=== PATIENT | female | born 1985 | race Caucasian/White ===

== ENCOUNTER 2024-03-19 11:57 | Outpatient (REF) | payer BC, SELFPAY ==
[2024-03-19 14:55] LABS: Absolute Basophil Count 0.05 10^3/uL (0.0-0.2); Absolute Eosinophil Count 0.09 10^3/uL (0.0-0.7); Absolute Lymphocyte Count 2.28 10^3/uL (1.2-3.4); Absolute Monocyte Count 0.72 10^3/uL (0.1-0.8); Absolute Neutrophil Count 6.69 10^3/uL (1.2-6.7); Basophils % 0.5 %; Eosinophils % 0.9 %; HCT 36.5 % (36.0-46.0); HGB 12.1 g/dL (11.2-15.7); MCH 29.9 pg (27.0-33.0); MCHC 33.2 % (32.0-36.0); MCV 90 fL (80-95); MPV 9.6 fL (8.0-11.0); Monocytes % 7.3 %; Neutrophils % 67.3 %; Platelet Count 372 10^3/uL (130-400); RBC 4.05 10^6/uL (3.93-5.22); RDW 11.9 % (11.7-14.6); RDW-SD 39.2 fL; WBC 9.93 10^3/uL (4.4-10.8)
[2024-03-19 15:03] LABS: ESR 52 mm/hr (0-20)
[2024-03-19 15:11] LABS: ALT 55 U/L (14-59); AST 21 U/L (15-37); Albumin 3.2 g/dL (3.4-5.0); Alkaline Phosphatase 86 U/L (46-116); Anion Gap 8.6 mmol/L (3-11); BUN 11 mg/dL (7-18); Bilirubin, Total 0.34 mg/dL (0.2-1.0); CO2 27.4 mmol/L (21.0-32.0); CREATININE 0.7 mg/dL (0.55-1.02); Chloride 104 mmol/L (98-107); Estimated GFR 114.88 (mL/min/1.73m2); Glucose 91 mg/dL (74-106); Potassium 4.4 mmol/L (3.5-5.1); Sodium 140 mmol/L (136-145); Total Protein 7.8 g/dL (6.4-8.2)
[2024-03-19 15:17] LABS: Hemoglobin A1C 5.4 % (<5.7)
[2024-03-19 15:20] LABS: C-Reactive Protein 1.55 mg/dL (<or=0.5)
[2024-03-19 22:17] LABS: Rheumatoid Factor <8.6 IU/mL (<12.0)
[2024-03-20 11:00] LABS: Lyme Ab w Rflx to Lyme Confirm Negative (Negative)
[2024-03-20 14:22] LABS: ANA Interpretation Negative (Negative)
[2024-03-22 18:35] LABS: Anaplasma phagocytophilum Negative (Negative); B. miyamotoi PCR Negative (Negative); Babesia divergens/MO-1 Negative (Negative); Babesia duncani Negative (Negative); Babesia microti Negative (Negative); Ehrlichia chaffeensis Negative (Negative); Ehrlichia ewingii/canis Negative (Negative); Ehrlichia muris eauclairensis Negative (Negative)
== END 2024-03-19 11:58 | disposition home or self-care (01) ==
LOC: LBN 11:57
PROVIDERS: PCP Nurse Practitioner Family; Visit Provider Physician Assistant Medical
DX: M25.50 Pain in unspecified joint (principal)
CPT/HCPCS: 80053; 85652; 87798; 83036; 85025; 86038; 86140; 86431; 86618

== ENCOUNTER 2024-03-25 18:33 | Outpatient (REF) | payer BC, SELFPAY ==
[2024-03-28 15:59] LABS: HLA-B27 Result Negative
== END 2024-03-25 18:34 | disposition home or self-care (01) ==
LOC: NCHCN 18:33
PROVIDERS: PCP Nurse Practitioner Family; Visit Provider Nurse Practitioner Family
DX: M25.59 Pain in other specified joint (principal)
CPT/HCPCS: 81374; 86812

== ENCOUNTER 2024-04-14 18:45 | Outpatient (REF) | payer BC, SELFPAY ==
--- OUTSIDE RECORDS SUMMARY | 2024-04-14 18:47 | XMS_ITS | Continuity of Care Document ---
Author Organization [facility] Address [address] [place] [address] Care Team Providers Care Tobacco Packer Name Role Phone Sisi English Primary Care Physician Encounter [place] Date(s): 03/31/24 - 03/31/[address] [phone] [place] Discharge Disposition: Home or Self Care Attending Physician: Sisi English ENGRAVING OPERATOR Admitting Physician: Sisi English ENGRAVING OPERATOR Referring Physician: Sisi English ENGRAVING OPERATOR Allergies, Adverse Reactions, Alerts No Known Allergies Assessment and Plan Diagnostic Tests Pending * Protein Electrophoresis, S (SPEP) [facility] 03/31/24 * Anti DNA (Double Strand) [facility] 03/31/24 * Cardiolipin Abs, IgG & IgM, S [facility] [facility] 03/31/24 Immunizations Given and Recorded Vaccine Date Status Refusal Reason influenza virus vaccine, live 03/05/14 Recorded tetanus/diphth/pertuss (Tdap) adult/adol 06/25/09 Recorded influenza virus vaccine, inactivated 04/05/09 [place] rded Medications escitalopram 5 mg oral tablet 5 mg = 1 tab, Oral, Daily Start Date: 11/02/21 Status: Ordered losartan 0 Refill(s) Start Date: 08/24/22 Status: Ordered Mirena 52 mg intrauteral device 0 Refill(s) Start Date: 08/24/22 Status: Ordered Problem List Condition Confirmation Course Effective Dates Status Health Status Informant Atypical squamous cells on cervical Papanicolaou smear cannot exclude high grade squamous intraepithelial lesion Confirmed Active Breast signs and symptoms Confirmed Active Disorder of menstruation Confirmed Active Hypertensive disorder Confirmed 01/12/20 Active Obstructive sleep apnea syndrome Confirmed Active 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 Psychophysiologic insomnia Confirmed 01/12/20 Active Snoring Confirmed 01/12/20 Active Umbilical hernia Confirmed Active Procedures Procedure Date Related Diagnosis Body Site Status Due 07/2027 1, 2 08/23/22 Completed section 3 01/09/14 Comple yary - Neg/Neg Next pap due 07/2027 2Pap Due - 12/2023 Paps every 3 years til 203910/04/06 - WNL; 07/24/07 - WNL; 03/08/09 - ASCUS/Pos; 08/24/09 - ASCUS cant r/o HGSIL (Colpo was never done); 04/17/13 - ASCUS/Pos; 03/05/2014 - ASC-H; 05/04/14 - ASC-H; 06/03/14 - Cvx Bx - Ch inflam & reactive epi changes; 01/13/19 - Neg/Neg 3FAHC - Preeclampsia w/ evolving HELLP Results Laboratory List Name Date C-Reactive Protein 03/31/24 CBC w/ Diff 03/31/24 ESR Alcor 03/31/24 Urinalysis with Microscopic 03/31/24 Urinalysis Microscopic 03/31/24 Automated Diff 03/31/24 Most recent to oldest [Reference Range]: 1 WBC [5.0-10.0 x10^3/mcL] 9.3 x10^3/mcL (03/31/24 1:56 PM) RBC [4.1-5.3 x10^6/mcL] 4.1 x10^6/mcL (03/31/24 1:56 PM) Neutro Auto [40.0-75.0 %] 64.2 % (03/31/24 1:56 PM) Lymph Auto [20.0-50.0 %] 22.6 % (03/31/24 1:56 PM) Mcleod Auto [2.0-15.0 %] 10.0 % (03/31/24 1:56 PM) Basophil Auto [0.0-1.0 %] 0.5 % (03/31/24 1:56 PM) UA Color Yellow (03/31/24 1:56 PM) UA WBC [0-3] 10-25 *ABN* (03/31/24 1:56 PM) MCV [80.0-96.0 fL] 89.6 fL (03/31/24 1:56 PM) UA Urobilinogen Normal (03/31/24 1:56 PM) UA Bili [Negative] Negative (03/31/24 1:56 PM) CRP [<=10.0 mg/L] 7.5 mg/L (03/31/24 1:56 PM) UA Ketones Trace *ABN* (03/31/24 1:56 PM) MCHC [31.0-35.0 g/dL] 33.2 g/dL (03/31/24 1:56 PM) UA RBC [0-2] 0-2 (03/31/24 1:56 PM) UA Leuk Est 1+ *ABN* (03/31/24 1:56 PM) UA Nitrite Negative (03/31/24 1:56 PM) UA Glucose [Negative] Negative (03/31/24 1:56 PM) Hct [37.0-47.0 %] 37.0 % (03/31/24 1:56 PM) UA Bacteria Few /HPF *ABN* (03/31/24 1:56 PM) UA Protein Negative (03/31/24 1:56 PM) MCH [26.0-32.0 pg] 29.8 pg (03/31/24 1:56 PM) Neutro Absolute 6.0 x10^3/mcL *NA* (03/31/24 1:56 PM) Hgb [12.0-16.0 g/dL] 12.3 g/dL (03/31/24 1:56 PM) UA Blood Negative (03/31/24 1:56 PM) UA Mucous Moderate /HPF *ABN* (03/31/24 1:56 PM) UA Spec Grav 1.025 *NA* (03/31/24 1:56 PM) Platelets [130-450 x10^3/mcL] 308 x10^3/ mcL (03/31/24 1:56 PM) UA Squam Epithelial [None Seen] Moderate *ABN* (03/31/24 1:56 PM) UA pH 5.5 *NA* (03/31/24 1:56 PM) UA Appear Hazy *ABN* (03/31/24 1:56 PM) RDW-CV [11.5-14.5 %] 12.3 % (03/31/24 1:56 PM) Imm Gran Auto [0.0-0.9 %] 1.5 % *HI* (03/31/24 1:56 PM) UA Culture Ind?. Not Applicable (03/31/24 1:56 PM) miniiSED ESR [0-30 mm/hr] 23 mm/hr (03/31/24 1:56 PM) Eos, Auto [1.0-6.0 %] 1.2 % (03/31/24 1:56 PM) Social History Social History Type Response Tobacco Former tobacco user Tobacco Use:. 1 Sex Female Sex Representation Female (finding) 1Former social smoker only Patient Care team information Care Team Personnel Name: Sisi English ENGRAVING OPERATOR Position: PowerChart View Only Member Role: Primary Care Physician Address: [address] [place] [address]- Care Team Related Persons Name: NOREEN HERNANDEZ Name: LEXA PRESCOTT Name: KAREN GLAE Name: SADAF GALE Insurance Providers Guarantor name: GAURAV GALE Health Plan Information #: 1 Payer: [facility] Member Number: [id number] Policy Number: NA Health Plan Information #: 2 Payer: [employer] [facility] Member Number: [id number] Policy Number: NA
--- OUTSIDE RECORDS SUMMARY | 2024-04-14 18:47 | XMS_ITS | Continuity of Care Document ---
Author Organization [facility] Address [address] [place] [address] Care Team Providers Care Culture Media Laboratory Assistant Name Role Phone au DEEPTIBlake Primary Care Physician Encounter [place] Date(s): 09/20/23 - 09/20/23 [facility] [address] [place] [address] Discharge Disposition: Home or Self Care Attending Physician: Sisi English NP Admitting Physician: Sisi English NP Referring Physician: Sisi English METAL SPRAYER Allergies, Adverse Reactions, Alerts No Known Allergies Immunizations Given and Recorded Vaccine Date Status [...] evolving HELLP Results Laboratory List Name Date Comprehensive Metabolic Panel 09/20/23 Lipid Panel 09/20/23 Most recent to oldest [Reference Range]: 1 BUN [7-18 mg/dL] 11 mg/dL (09/20/23 8:43 AM) Cholesterol Total [50-200 mg/dL] 217 mg/ dL *HI* (09/20/23 8:43 AM) LDL [0-130 mg/dL] 159 mg/dL *HI* (09/20/23 8:43 AM) Glucose Level [74-106 mg/dL] 100 mg/dL (09/20/23 8:43 AM) Potassium Level [3.5-5.1 mmol/L] 3.9 mmo l/L (09/20/23 8:43 AM) HDL [40-60 mg/dL] 32 mg/dL *LOW* (09/20/23 8:43 AM) AST [15-37 unit/L] 9 unit/L *LOW* (09/20/23 8:43 AM) ALT [14-59 unit/L] 20 unit/L (09/20/23 8:43 AM) Sodium Level [136-145 mmol/L] 136 mmol/L (09/20/23 8:43 AM) Triglycerides [0-150 mg/dL] 130 mg/dL (09/20/23 8:43 AM) Calcium Level [8.5-10.1 mg/dL] 8.5 mg/dL (09/20/23 8:43 AM) Albumin Level [3.4-5.0 g/dL] 3.1 g/dL *LOW* (09/20/23 8:43 AM) Protein Total [6.4-8.2 g/dL] 7.2 g/dL (09/20/23 8:43 AM) Bilirubin Total [0.2-1.0 mg/dL] 0.4 mg/d L (09/20/23 8:43 AM) Alk Phos [46-146 unit/L] 59 unit/L (09/20/23 8:43 AM) CO2 [21-32 mmol/L] 25 mmol/L (09/20/23 8:43 AM) eGFR Non-AA [>=60] 109 (09/20/23 8:43 AM) eGFR AA [>=60] 109 (09/20/23 8:43 AM) Chloride Level [98-107 mmol/L] 104 mmol/ L (09/20/23 8:43 AM) Creatinine Level [0.55-1.02 mg/dL] 0.73 mg/dL (09/20/23 8:43 AM) Social History Social History Type Response Tobacco Former tobacco user Tobacco Use:. 1 Sex Female 1Former social smoker only Patient Care team information Care Team Personnel Name: Jony [facility]ake MD Position: Physician Member Role: Primary Care Physician Address: Address: [address] [place] [address] [place], [place] [address]
--- OUTSIDE RECORDS SUMMARY | 2024-04-14 18:47 | XMS_ITS | Clinical Summary ---
Author Organization [facility] Address [address] [place] [address] Care Team Providers Care Logistical Engineer Name Role Phone Unavailable Primary Care Provider Unavailabl e Encounters Date Type Department Care Team Description 04/08/2024 Lab Requisition [facility] Pathology & Laboratory [address] [address] Outr Resulting Lab, Provider 03/31/2024 Lab Requisition [facility] Laboratory [address] [address] Outr Resulting Lab, Provider 03/19/2024 Lab Requisition [facility]ology & Laboratory [address] [address] Outr Resulting Lab, Provider from Last 3 Months Social History Tobacco Use Types Packs/Day Years Used Date Smoking Tobacco: Never Assessed Comments Unknown Sex and Gender Information Value Date Recorded Sex Assigned at Not on file Legal Sex Female 14:42 EDT Gender Identity Not on file Sexual Orientation Not on file Plan of Treatment Health Maintenance Due Date Last Done Comments Hepatitis C Screen 1987 Hepatitis B Vaccine (1 of 3 - 19+ 3-dose series) 06/27 COVID-19 Vaccine ( season) 2023 Procedures Procedure Name Priority Date/Time Associated Diagnosis Comments LYME AB Routine 04/08/2024 11:42 EST ANAPLASMA AND BABESIA TESTING BY PCR Routine 04/08/2024 11:42 EST SPEP, INCLUDES QUANTITATION OF MONOCLONAL SPIKE PERFORMABLE Today 03/31/2024 13:56 EST PROTEIN, TOTAL Today 03/31/2024 13:56 EST DOUBLE STRANDED DNA ANTIBODY, IGG Routine 03/31/2024 13:56 EST SPEP, INCLUDES QUANTITATION OF MONOCLONAL SPIKE Routine 03/31/2024 13:56 EST LYME AB Routine 03/19/2024 11:30 EST RHEUMATOID FACTOR Routine 03/19/2024 11: 30 EST ANTI NUCLEAR AB (TOM), IFA Routine 03/19/2024 11:30 EST from Last 3 Months Results * ANAPLASMA AND BABESIA TESTING BY PCR (04/08/2024 11:42 EST) Anaplasma phagocytophilum Negative Negative 04/09/2024 12:51 EST [facility] Babesia Species Negative Negative 12:51 EST [facility] Blood VENOUS BLOOD / Unknown 04/08/2024 11:42 EST 04/08/2024 22:03 EST Narrative [facility] - 04/09/2024 12:51 EST This test was developed and its performance characteristics determined by [place] [facility]. It has not been cleared or approved by the US Food and Drug Administration. FDA does not require this test to go through premarket FDA review. This test is used for clinical purposes. It should not be regarded as investigational or research. This laboratory is certified under the Clinical Laboratory Improvement Amendments (CLIA) as qualified to perform high complexity clinical laboratory testing. us Provider Outr Resulting Lab CHEMISTRY & BLOOD GA S ORDERABLES Final Result [facility] [address] [place] [address] * LYME AB (04/08/2024 11:42 EST) Only the most recent of2 resultswithin the time period is included. Lyme Ab Negative Negative 04/09/2024 11:07 EST [facility] Blood VENOUS BLOOD / Unknown 04/08/2024 11:42 EST 04/08/2024 22:03 EST us Provider Outr Resulting Lab IMMUNOLOGY AND SEROL OGY ORDERABLES Final Result [facility] [address] [place] [address] * SPEP, INCLUDES QUANTITATION OF MONOCLONAL SPIKE PERFORMABLE (03/31/2024 13:56 EST) Albumin % 58.3 55.8 - 66.1 % 04/01/2024 13:38 [facility] Albumin g/dL 4.1 3.6 - 5.2 g/dL 04/01/2024 13:38 [facility] Alpha-1 % 3.8 2.9 - 4.9 % 04/01/2024 13:38 [facility] Alpha-1 g/dL 0.30 0.15 - 0.40 g/dL 04/01/2024 13:38 [facility] Alpha-2 % 9.7 7.1 - 11.8 % 04/01/2024 13:38 [facility] Alpha-2 g/dL 0.70 0.50 - 1.00 g/dL 04/01/2024 13:38 [facility] Beta % 11.4 8.4 - 13.1 % 04/01/2024 13:38 [facility] Beta g/dL 0.80 0.60 - 1.20 g/dL 04/01/2024 13:38 [facility] Gamma % 16.8 11.1 - 18.8 % 04/01/2024 13:38 [facility] Gamma g/dL 1.20 0.60 - 1.60 g/dL 04/01/2024 13:38 [facility] SPEP Comment No apparent monoclonal protein seen on serum electrophoresis 04/01/2024 13:38 [facility] Total Protein 7.0 6.3 - 8.2 g/dL 04/01/2024 13:38 [facility] Blood VENOUS BLOOD / Unknown 03/31/2024 13:56 EST 03/31/2024 22:33 EST us Provider Outr Resulting Lab CHEMISTRY & BLOOD GA S ORDERABLES Final Result Performing Organization Address [facility]/ZIP Co de Phone Number [facility] [address] [place] [address] * DOUBLE STRANDED DNA ANTIBODY, IGG (03/31/2024 13:56 EST) dsDNA Ab, IgG <22.0 <27.0 IU/mL 04/01/2024 13:11 EST [facility] Comment: Negative: <27.0 IU/mL Indeterminate: 27.0 - 35.0 IU/mL Positive: >35.0 IU/mL Results were obtained with [employer]Jar[employer] Flash dsDNA chemiluminescent immunoassay. Values obtained with different manufacturers' assay methods may not be used interchangeably. Blood VENOUS BLOOD / Unknown 03/31/2024 13:56 EST 03/31/2024 22:33 EST us Provider Outr Resulting Lab IMMUNOLOGY AND SEROL OGY ORDERABLES Final Result Performing Organization Address [facility] Co de Phone Number [facility] [address] [place] [phone] * PROTEIN, TOTAL (03/31/2024 13:56 EST) Blood VENOUS BLOOD / Unknown 03/31/2024 13:56 EST 03/31/2024 22:33 EST us Provider Outr Resulting Lab CHEMISTRY & BLOOD GA S ORDERABLES Final Result Performing Organization Address City/[facility]/ZIP Co de Phone Number [facility] [address] [place] [address] * RHEUMATOID FACTOR (03/19/2024 11:30 EST) Rheumatoid Factor <8.6 <12.0 IU/mL 03/19/2024 22:13 EST [facility] Blood VENOUS BLOOD / Unknown 03/19/2024 11:30 EST 03/19/2024 21:49 EST us Provider Outr Resulting Lab CHEMISTRY & BLOOD GA S ORDERABLES Final Result Performing Organization Address [facility]/ZIP Co de Phone Number [facility] [address] [place] [address] * ANTI NUCLEAR AB (TOM), IFA (03/19/2024 11:30 EST) TOM Interpretation Negative Negative 2023 14:17 EST [facility] Comment:No titer performed, TOM Screen is negative. Blood VENOUS BLOOD / Unknown 03/19/2024 11:30 EST 03/19/2024 21:49 EST Narrative [facility] - 03/20/2024 14:17 EST Results were obtained with the D[employer] NOVA Lite HEp-2 TOM Kit by indirect immunofluorescence. us Provider Outr Resulting Lab IMMUNOLOGY AND SEROL OGY ORDERABLES Final Result Performing Organization Address City/[facility]/ZIP Co de Phone Number [facility] [address] [place] [address] from Last 3 Months
--- OUTSIDE RECORDS SUMMARY | 2024-04-14 18:47 | XMS_ITS | Encounter Summary ---
Author Organization [facility] Address [address] [place] [address] Care Team Providers Care Boatswains Mate Name Role Phone Unavailable Primary Care Provider Unavailabl e Encounter Details Date Type Department Care Team (Late st Contact Info) Description 03/31/2024 Lab Requisition [facility] Pathology & Laboratory Medicine - [facility] [address] [place] [address] Outr Resulting Lab, Provider Social History Tobacco Use Types Packs/Day Years Used Date Smoking Tobacco: Never Assessed Comments Unknown Sex and Gender Information Value Date Recorded Sex Assigned at Not on file Legal Sex Female 14:42 EDT Gender Identity Not on file Sexual Orientation Not on file documented as of this encounter Plan of Treatment Not on file documented as of this encounter Procedures Procedure Name Priority Date/Time Associated Diagnosis Comments SPEP, INCLUDES QUANTITATION OF MONOCLONAL SPIKE PERFORMABLE Today 03/31/2024 13:56 EST DOUBLE STRANDED DNA ANTIBODY, IGG Routine 03/31/2024 13:56 EST SPEP, INCLUDES QUANTITATION OF MONOCLONAL SPIKE Routine 03/31/2024 13:56 EST PROTEIN, TOTAL Today 03/31/2024 13:56 EST documented in this encounter Results * SPEP, INCLUDES QUANTITATION OF MONOCLONAL SPIKE PERFORMABLE (03/31/2024 13:56 EST) Albumin % 58.3 55.8 - 66.1 % 04/01/2024 13:38 EST [facility] Albumin g/dL 4.1 3.6 - 5.2 g/dL 04/01/2024 13:38 EST [facility] Alpha-1 % 3.8 2.9 - 4.9 % 04/01/2024 13:38 [facility] Alpha-1 g/dL 0.30 0.15 - 0.40 g/dL 04/01/2024 13:38 [facility] Alpha-2 % 9.7 7.1 - 11.8 % 04/01/2024 13:38 [facility] Alpha-2 g/dL 0.70 0.50 - 1.00 g/dL 04/01/2024 13:38 [facility] Beta % 11.4 8.4 - 13.1 % 04/01/2024 13:38 [facility] Beta g/dL 0.80 0.60 - 1.20 g/dL 04/01/2024 13:38 [facility] Gamma % 16.8 11.1 - 18.8 % 04/01/2024 13:38 [facility] Gamma g/dL 1.20 0.60 - 1.60 g/dL 04/01/2024 13:38 [facility] SPEP Comment No apparent monoclonal protein seen on serum electrophoresis 04/01/2024 13:38 [facility] Total Protein 7.0 6.3 - 8.2 g/dL 04/01/2024 13:38 [facility] Blood VENOUS BLOOD / Unknown 03/31/2024 13:56 EST 03/31/2024 22:33 EST us Provider Outr Resulting Lab CHEMISTRY & BLOOD GA S ORDERABLES Final Result Performing Organization Address City/[facility]/ZIP Co de Phone Number [facility] [address] [place] [address] * PROTEIN, TOTAL (03/31/2024 13:56 EST) Blood VENOUS BLOOD / Unknown 03/31/2024 13:56 EST 03/31/2024 22:33 EST us Provider Outr Resulting Lab CHEMISTRY & BLOOD GA S ORDERABLES Final Result Performing Organization Address City/[facility]/ZIP Co de Phone Number [facility] [address] [place], [place] [id number] * DOUBLE STRANDED DNA ANTIBODY, IGG (03/31/2024 13:56 EST) dsDNA Ab, IgG <22.0 <27.0 IU/mL 04/01/2024 13:11 EST [facility] Comment: Negative: <27.0 IU/mL Indeterminate: 27.0 - 35.0 IU/mL Positive: >35.0 IU/mL Results were obtained with [employer] Flash dsDNA chemiluminescent immunoassay. Values obtained with different manufacturers' assay methods may not be used interchangeably. Blood VENOUS BLOOD / Unknown 03/31/2024 13:56 EST 03/31/2024 22:33 EST us Provider Outr Resulting Lab IMMUNOLOGY AND SEROL OGY ORDERABLES Final Result [facility] [address] [place], [place] [id number] documented in this encounter Visit Diagnoses Not on filedocumented in this encounter
--- OUTSIDE RECORDS SUMMARY | 2024-04-14 18:47 | XMS_ITS | Continuity of Care Document ---
Author Organization [facility] Address [address] [place] [address] Care Team Providers Care Information Systems Security Developer Name Role Phone Primeau DEEPTIBlake Primary Care Physician Encounter [facility]CT[facility]_[place] Date(s): 08/24/22 - 08/24/22 [facility] [address] [place] [address] Discharge Disposition: Home or Self Care Attending Physician: Domitila Nunez CNM Admitting Physician: Domitila Nunez CNM Referring Physician: Domitila Nunez CNM Allergies, Adverse Reactions, Alerts No Known Allergies Assessment and Plan Future Appointments Diagnostic Tests Pending * PAP Test [facility] 08/24/22 Immunizations Given and Recorded Vaccine Date Status [...] Date Related Diagnosis Body Site Status Due 12/2021 1 01/12/19 Completed section 2 01/09/14 Comple yary 1Pap Due - 12/2023 Paps every 3 years til 203910/04/06 - WNL; 07/24/07 - WNL; 03/08/09 - ASCUS/Pos; 08/24/09 - ASCUS cant r/o HGSIL (Colpo was never done); 04/17/13 - ASCUS/Pos; 03/05/2014 - ASC-H; 05/04/14 - ASC-H; 06/03/14 - Cvx Bx - Ch inflam & reactive epi changes; 01/13/19 - Neg/Neg 2FAHC - Preeclampsia w/ evolving HELLP Social History Social History Type Response Tobacco Former tobacco user Tobacco Use:. 1 Sex Female 1Former social smoker only Patient Care team information Care Team Personnel Name: Blake Pak MD Position: Physician Member Role: Primary Care Physician Address: Address: [address] [place] [address] [place] Care Team Related Persons Name: KAREN GALE Address: Home [address] [place], [place] [id number]
--- OUTSIDE RECORDS SUMMARY | 2024-04-14 18:47 | XMS_ITS | Continuity of Care Document ---
Author Organization [facility] Address [address] [place] [address] Care Team Providers Care Procedural Nurse Name Role Phone Sisi English Primary Care Physician Encounter [place]CT[place] Date(s): 04/08/24 - 04/08/[address] [phone] [place] Discharge Disposition: Home or Self Care Attending Physician: Sisi English SIGNAL MAINTAINER HELPER Admitting Physician: Sisi English SIGNAL MAINTAINER HELPER Referring Physician: Sisi English SIGNAL MAINTAINER HELPER Allergies, Adverse Reactions, Alerts No Known Allergies Assessment and Plan Diagnostic Tests Pending * Anaplasma and Babesia Testing by PCR, WB [facility] 04/08/24 Immunizations Given and Recorded Vaccine Date Status [...] evolving HELLP Results Laboratory List Name Date Lyme Antibody [facility] 04/08/24 Most recent to oldest [Reference Range]: 1 Lyme Ab [facility] [Negative] Negative 1 *NA* (04/08/24 11:42 AM) 1Result Comment: Test performed [place] [address] Orders for Microbiology Reports Name Date Urine Culture 04/08/24 Microbiology Reports TEST:Urine Culture STATUS:Order in Progress BODY SITE: SOURCE:Urine, Clean Catch COLLECTED DATE/TIME:04/08/24 11:45 AM PRELIMINARY REPORT <10,000 cfu/ml Gram Positive Cocci Gram Positive Bacilli Susceptibilities Not Indicated Social History Social History Type Response Tobacco Former tobacco user Tobacco Use:. 1 Sex Female Sex Representation Female (finding) 1Former social smoker only Patient Care team information Care Team Personnel Name: Sisi English SIGNAL MAINTAINER HELPER Position: PowerChart View Only Member Role: Primary Care Physician Address: [address] [place] [address]- Care Team Related Persons Name: NOREEN HERNANDEZ Name: LEXA PRESCOTT Name: KAREN GALE Name: SADAF GALE Insurance Providers Guarantor name: GAURAV GALE Health Plan Information #: 1 Payer: [facility] Member Number: [id number] Policy Number: NA Health Plan Information #: 2 Payer: [facility] Member Number: [id number] Policy Number: NA
--- OUTSIDE RECORDS SUMMARY | 2024-04-14 18:47 | XMS_ITS | Referral Summary ---
Author Organization [facility] Address [address] [place] [address] Care Team Providers Care Sourcer Name Role Phone Unavailable Primary Care Provider Unavailabl e Encounters Date Type Department Care Team Description 04/08/2024 Lab Requisition [facility] Pathology & Laboratory [address] [address] Outr Resulting Lab, Provider 03/31/2024 Lab Requisition [facility] & Laboratory [address] [address] Outr Resulting Lab, Provider 03/19/2024 Lab Requisition [facility] & Laboratory [address] [address] Outr Resulting Lab, Provider from Last 3 Months Social History Tobacco Use Types Packs/Day Years Used Date Smoking Tobacco: Never Assessed Comments Unknown Sex and Gender Information Value Date Recorded Sex Assigned at Not on file Legal Sex Female 14:42 EDT Gender Identity Not on file Sexual Orientation Not on file Plan of Treatment Not on file Procedures Procedure Name Priority Date/Time Associated Diagnosis [...] Anaplasma phagocytophilum Negative Negative 04/09/2024 12:51 EST [facility] Babesia Species Negative Negative 12:51 EST [facility] Blood VENOUS BLOOD / Unknown 04/08/2024 11:42 EST 04/08/2024 22:03 EST Narrative [facility] - 04/09/2024 12:51 EST This test was developed and its performance characteristics determined by . It has not been cleared or approved [...] S ORDERABLES Final Result Performing Organization Address City/[facility] Co de Phone Number [facility] [address] [place] [phone] * LYME AB (04/08/2024 11:42 EST) Only the most recent of2 resultswithin the time period is included. Lyme Ab Negative Negative 04/09/2024 11:07 EST [facility] Blood VENOUS BLOOD / Unknown 04/08/2024 11:42 EST 04/08/2024 22:03 EST us Provider Outr Resulting Lab IMMUNOLOGY AND SEROL OGY ORDERABLES Final Result [facility] [address] [place] [address] * SPEP, INCLUDES QUANTITATION OF MONOCLONAL SPIKE PERFORMABLE (03/31/2024 13:56 EST) Albumin % 58.3 55.8 - 66.1 % 04/01/2024 13:38 [facility] Albumin g/dL 4.1 3.6 - 5.2 g/dL 04/01/2024 13:38 [facility] Alpha-1 % 3.8 2.9 - 4.9 % 04/01/2024 13:38 [facility] Alpha-1 g/dL 0.30 0.15 - 0.40 g/dL 04/01/2024 13:38 [facility] Alpha-2 % 9.7 7.1 - 11.8 % 04/01/2024 13:38 [facility] Alpha-2 g/dL 0.70 0.50 - 1.00 g/dL 04/01/2024 13:38 [facility] Beta % 11.4 8.4 - 13.1 % 04/01/2024 13:38 [facility] Beta g/dL 0.80 0.60 - 1.20 g/dL 04/01/2024 13:38 [facility] Gamma % 16.8 11.1 - 18.8 % 04/01/2024 13:38 [facility] Gamma g/dL 1.20 0.60 - 1.60 g/dL 04/01/2024 13:38 [facility] SPEP Comment No apparent monoclonal protein seen on serum electrophoresis 04/01/2024 13:38 [facility] Total Protein 7.0 6.3 - 8.2 g/dL 04/01/2024 13:38 [facility] Blood VENOUS BLOOD / Unknown 03/31/2024 13:56 EST 03/31/2024 22:33 EST us Provider Outr Resulting Lab CHEMISTRY & BLOOD GA S ORDERABLES Final Result Performing Organization Address [facility] de Phone Number [facility] [address] [place] [phone] * DOUBLE STRANDED DNA ANTIBODY, IGG (03/31/2024 13:56 EST) dsDNA Ab, IgG <22.0 <27.0 IU/mL 04/01/2024 13:11 EST [facility] Comment: Negative: <27.0 IU/mL Indeterminate: 27.0 - 35.0 IU/mL Positive: >35.0 IU/mL Results were obtained with [employer] Flash dsDNA chemiluminescent immunoassay. Values obtained with different manufacturers' assay methods may not be used interchangeably. Blood VENOUS BLOOD / Unknown 03/31/2024 13:56 EST 03/31/2024 22:33 EST us Provider Outr Resulting Lab IMMUNOLOGY AND SEROL OGY ORDERABLES Final Result Performing Organization Address [facility] de Phone Number [facility] [address] [place] [phone] * PROTEIN, TOTAL (03/31/2024 13:56 EST) Blood VENOUS BLOOD / Unknown 03/31/2024 13:56 EST 03/31/2024 22:33 EST us Provider Outr Resulting Lab CHEMISTRY & BLOOD GA S ORDERABLES Final Result Performing Organization Address [facility] Co de Phone Number [facility] [address] [place] [phone] * RHEUMATOID FACTOR (03/19/2024 11:30 EST) Rheumatoid Factor <8.6 <12.0 IU/mL 03/19/2024 22:13 EST [facility] Blood VENOUS BLOOD / Unknown 03/19/2024 11:30 EST 03/19/2024 21:49 EST us Provider Outr Resulting Lab CHEMISTRY & BLOOD GA S ORDERABLES Final Result Performing Organization Address City/[facility]/ZIP Co de Phone Number [facility] [address] [place] [address] * ANTI NUCLEAR AB (TOM), IFA (03/19/2024 11:30 EST) TOM Interpretation Negative Negative 2023 14:17 EST [facility] Comment:No titer performed, TOM Screen is negative. Blood VENOUS BLOOD / Unknown 03/19/2024 11:30 EST 03/19/2024 21:49 EST Narrative [facility] - 03/20/2024 14:17 EST Results were obtained with the [employer] NOVA Lite HEp-2 TOM Kit by indirect immunofluorescence. us Provider Outr Resulting Lab IMMUNOLOGY AND SEROL OGY ORDERABLES Final Result Performing Organization Address City/[facility]/ZIP Co de Phone Number [facility] [address] [place] [address] from Last 3 Months
--- OUTSIDE RECORDS SUMMARY | 2024-04-14 18:47 | XMS_ITS | Encounter Summary ---
Author Organization [facility] Address [address] [place] [address] Care Team Providers Care Sheet Cutter Name Role Phone Unavailable Primary Care Provider Unavailabl e Encounter Details Date Type Department Care Team (Late st Contact Info) Description 04/08/[address] [facility] Pathology & Laboratory Medicine - [facility] [address] [place] [address] Outr Resulting Lab, Provider Social History Tobacco [...] Procedure Name Priority Date/Time Associated Diagnosis Comments ANAPLASMA AND BABESIA TESTING BY PCR Routine 04/08/2024 11:42 EST LYME AB Routine 04/08/2024 11:42 EST documented in this encounter Results * LYME AB (04/08/2024 11:42 EST) Lyme Ab Negative Negative 04/09/2024 11:07 EST [facility] Blood VENOUS BLOOD / Unknown 04/08/2024 11:42 EST 04/08/2024 22:03 EST us Provider Outr Resulting Lab IMMUNOLOGY AND SEROL OGY ORDERABLES Final Result [facility] [address] [place], [place] [phone] * ANAPLASMA AND BABESIA TESTING BY PCR (04/08/2024 11:42 EST) Anaplasma phagocytophilum Negative Negative 04/09/2024 12:51 EST [facility] Babesia Species Negative Negative 12:51 EST [facility] Blood VENOUS BLOOD / Unknown 04/08/2024 11:42 EST 04/08/2024 22:03 EST Narrative [facility] - 04/09/2024 12:51 EST This test was developed and its performance characteristics determined by [facility]. It has not been cleared or [...] & BLOOD GA S ORDERABLES Final Result [facility] [address] [place], [place] [phone] documented in this encounter Visit Diagnoses Not on filedocumented in this encounter
--- OUTSIDE RECORDS SUMMARY | 2024-04-14 18:47 | XMS_ITS | Encounter Summary ---
Author Organization [facility] Address [address] [place] [address] Care Team Providers Care Application Support Engineer Name Role Phone Unavailable Primary Care Provider Unavailabl e Encounter Details Date Type Department Care Team (Latest Contact Info) Description 08/24/2022 Lab Requisition [facility] Pathology & Laboratory Medicine - [facility] [address] [place] [address] Domitila Bui, [address] [address] Encounter for gynecological examination (general) (routine) without abnormal findings; Encounter for screening for human papillomavirus (HPV) Social History Tobacco Use Types Packs/Day Years [...] Procedure Name Priority Date/Time Associated Diagnosis Comments PAP TEST Today 08/24/2022 14:24 EDT HPV DNA DETECTION WITH GENOTYPING, PCR Today 08/24/2022 14:24 EDT documented in this encounter Results * HUMAN PAPILLOMAVIRUS (HPV) DETECTION-HIGH RISK TYPES (08/24/2022 14:24 EDT) HPV other High Risk types, PCR Negative Negative 09/01/2022 15:50 EDT [facility] Comment:No E6 or E7 mRNA is detected from HPV types 16,18,31,33,35,39,45,51,52,56,58,59,66, and 68 by retail sales consultant mediated amplification. Papanicolaou smear specimen (specimen) CERVIX UTERI STRUCTURE / Unknown 08/24/2022 14:24 EDT 08/31/2022 15:11 EDT Domitila Bui [facility] MICROBIOLOGY - GENERAL O RDERABLES Final Result [facility] [address] [place] [address] * PAP TEST (08/24/2022 14:24 EDT) Specimens A. Cervix and/or Endocervix , ThinPrep Imaging System with Manual Evaluation 09/01/2022 15:50 EDT [facility] Specimen Adequacy Satisfactory for Evaluation - transformation zone component present 09/01/2022 15:50 EDT [facility] General Categorization Negative for intraepithelial lesion or malignancy 09/01/2022 15:50 EDT [facility] Attestation . 09/01/2022 15:50 EDT [facility] at 1550 Clinical History See below 09/02/19 23 15:50 EDT [facility] HPV The result for the Human Papillomavirus (HPV) Detection-High Risk Types is Negative. No E6 or E7 mRNA is detected from HPV types 16,18,31,33,35,39 ,45,51,52,56,58,5 9,66, and 68 by retail sales consultant mediated amplification.Ayah ting was performed on specimen [id number] and was resulted on 09/01/2022 1550 EDT by JEFF, LAB INSTRUMENT RESULTS IN 09/01/2022 15:50 EDT [facility] Performing Lab [facility] 09/01/2022 15:50 EDT [facility] Scanned Images 09/01/2022 15:50 EDT [facility] Papanicolaou smear specimen (specimen) CERVIX UTERI STRUCTURE / Unknown 08/24/2022 14:24 EDT 08/25/2022 9:59 EDT Domitila Bui [facility] PATHOLOGY ORDERABLES Fin al Result [facility] [address] [place] [address] documented in this encounter Visit Diagnoses Diagnosis Encounter for gynecological examination (general) (routine) without abnormal findings Encounter for screening for human papillomavirus (HPV) Special screening examination for human papillomavirus (HPV) documented in this encounter
--- OUTSIDE RECORDS SUMMARY | 2024-04-14 18:47 | XMS_ITS | Encounter Summary ---
Author Organization [facility] Address [address] [place] [address] Care Team Providers Care Dope Mixer Name Role Phone Unavailable Primary Care Provider Unavailabl e Encounter Details Date Type Department Care Team (Late st Contact Info) Description 03/19/2024 Lab Requisition [facility] Pathology & Laboratory Medicine - [facility] [address] [place] [address] Outr Resulting Lab, Provider Social History Tobacco [...] Date/Time Associated Diagnosis Comments LYME AB Routine 03/19/2024 11:30 EST RHEUMATOID FACTOR Routine 03/19/2024 11: 30 EST ANTI NUCLEAR AB (TOM), IFA Routine 03/19/2024 11:30 EST documented in this encounter Results * LYME AB (03/19/2024 11:30 EST) Lyme Ab Negative Negative 03/20/2024 10:56 EST [facility] Blood VENOUS BLOOD / Unknown 03/19/2024 11:30 EST 03/19/2024 21:49 EST us Provider Outr Resulting Lab IMMUNOLOGY AND SEROL OGY ORDERABLES Final Result [facility] [address] [place], [place] [phone] * RHEUMATOID FACTOR (03/19/2024 11:30 EST) Rheumatoid Factor <8.6 <12.0 IU/mL 03/19/2024 22:13 EST [facility] Blood VENOUS BLOOD / Unknown 03/19/2024 11:30 EST 03/19/2024 21:49 EST us Provider Outr Resulting Lab CHEMISTRY & BLOOD GA S ORDERABLES Final Result Performing Organization Address City/[facility]/ZIP Co de Phone Number [facility] [address] [place], [place] [phone] * ANTI NUCLEAR AB (TOM), IFA (03/19/2024 11:30 EST) TOM Interpretation Negative Negative 2023 14:17 EST [facility] Comment:No titer performed, TOM Screen is negative. Blood VENOUS BLOOD / Unknown 03/19/2024 11:30 EST 03/19/2024 21:49 EST Narrative [facility] - 03/20/2024 14:17 EST Results were obtained with the [employer] NOVA Lite HEp-2 TOM Kit by indirect immunofluorescence. us Provider Outr Resulting Lab IMMUNOLOGY AND SEROL OGY ORDERABLES Final Result Performing Organization Address City/[facility]/ZIP Co de Phone Number [facility] [address] [place], [place] [phone] documented in this encounter Visit Diagnoses Not on filedocumented in this encounter
[2024-04-14 20:48] LABS: TSH (W/Ref FT4) 2.31 uIU/mL (0.36-3.74)
== END 2024-04-14 18:46 | disposition home or self-care (01) ==
LOC: NCHCN 18:45
PROVIDERS: PCP Nurse Practitioner Family; Visit Provider Nurse Practitioner Family
DX: R53.83 Other fatigue (principal)
CPT/HCPCS: 84443